=== PATIENT | male | born 1990 | race Caucasian/White ===

== ENCOUNTER 2017-06-09 13:45 | Emergency (ER) | payer MEDICAID ==
[~2017-06-09] VITALS: Ht 165.1 cm; Wt 99.8 kg
[2017-06-09 13:45] VITALS: BP_SYST 113
--- NOTE | 2017-06-09 13:50 | NUR ---
Patient triaged and placed in waiting room. VSS and patient appears in no acute distress at this time. Accompanied by FAMILY, awaiting available bed, and MD notified of need for MSE.
--- NOTE | 2017-06-09 13:54 | NUR ---
Patient to ER bed 4 to gown for evaluation. Side rails up. Report received from Shagufta RANGEL
--- NOTE | 2017-06-09 13:55 | NUR ---
Pt presents to ED c/o open wound s/p suturing. Pt has wound on R hand that has opeed and has s/s infection.Pt denies fever or chills.
--- NOTE | 2017-06-09 14:00 | NUR ---
ER Dr. Amaya at bedside examining patient.
--- NOTE | 2017-06-09 14:20 | NUR ---
Pt received wound care , tolerated well.
[2017-06-09] MEDS ORDERED: SULFAMETHOXAZOLE/TRIMETHOPR DS 1 TABLET PO ONE (14:45)
[2017-06-09] MEDS ORDERED: BACITRACIN 1 GM OINT TP ONE (14:45)
[2017-06-09] MEDS ORDERED: AMOXICILLIN/CLAVULANATE POTASSIUM 875 MG TABLET PO ONE (14:45)
[2017-06-09] MEDS ORDERED: ceFAZolin SODIUM 1 GM VIAL IM ONE (15:15)
--- NOTE | 2017-06-09 15:40 | NUR ---
Pt meduicated tolerated well. Will monitor before d/c.
[2017-06-09] MEDS ORDERED: LIDOCAINE 2%, 20 ML MDV ONE (15:46)
--- NOTE | 2017-06-09 16:00 | NUR ---
Patient given written and verbal discharge instructions and verbalizes understanding. ER MD discussed with patient the results and treatment provided. Patient in stable condition. ID arm band removed. Rx of Keflex,Bactrin DS given. Patient educated on pain management and to follow up with PMD. Pain Scale 2. Opportunity for questions provided and answered.
[2017-06-09 18:31] VITALS: BP_SYST 116
== END 2017-06-09 16:00 | disposition home or self-care (01) ==
LOC: SED 13:45
DX: S61.411D Laceration without foreign body of right hand, subsequent encounter (principal); W45.8XXA Other foreign body or object entering through skin, initial encounter; Y93.89 Activity, other specified; Y92.89 Other specified places as the place of occurrence of the external cause; Y99.8 Other external cause status
CPT/HCPCS: 96372; 99283; J0690; J2001

== ENCOUNTER 2017-06-12 20:14 | Emergency (ER) | payer MEDICAID ==
[~2017-06-12] VITALS: Ht 165.1 cm; Wt 99.8 kg
[2017-06-12 20:21] VITALS: BP_SYST 121
[2017-06-12 20:43] VITALS: BP_SYST 121
== END 2017-06-12 20:43 | disposition home or self-care (01) ==
LOC: SED 20:14
DX: S61.411D Laceration without foreign body of right hand, subsequent encounter (principal); X58.XXXD Exposure to other specified factors, subsequent encounter; Y92.89 Other specified places as the place of occurrence of the external cause; Y99.8 Other external cause status
CPT/HCPCS: 99283